=== PATIENT | male | born 1980 | race American Indian/Alaskan Native ===

== ENCOUNTER 2016-05-27 21:57 | Emergency (ER) | payer SELFPAY ==
[2016-05-27 22:09] VITALS: BP 145/100
[2016-05-27 23:02] LABS: Basophils % (Auto) 0.6 % (0.0-1.8); Eosinophils % (Auto) 2.8 % (0.0-4.3); Hematocrit 42.9 % (35.5-45.6); Hemoglobin 14.6 gm/dl (11.8-15.2); Mean Corpuscular HGB Conc 34 % (32-34); Mean Corpuscular Hemoglobin 29 pg (28-32); Mean Corpuscular Volume 85 fl (84-94); Platelet Count 204 K/mm3 (140-440); Red Blood Count 5.06 M/mm3 (3.65-5.03); Red Cell Distribution Width 13.8 % (13.2-15.2); White Blood Count 9.6 K/mm3 (4.5-11.0)
[2016-05-27 23:20] LABS: Blood Urea Nitrogen 11 mg/dL (9-20); Calcium 9.1 mg/dL (8.4-10.2); Carbon Dioxide 26 mmol/L (22-30); Chloride 104.4 mmol/L (98-107); Glucose 98 mg/dL (75-100); Potassium 3.9 mmol/L (3.6-5.0); Sodium 143 mmol/L (137-145)
[2016-05-27 23:25] LABS: Anion Gap 17 mmol/L
== END 2016-05-28 04:00 | disposition left against medical advice (07) ==
LOC: ED 21:57
DX: R07.89 Other chest pain (principal); Z53.21 Procedure and treatment not carried out due to patient leaving prior to being seen by health care provider
CPT/HCPCS: 36415; 80048; 84484; 85025; 93005; 93010